=== PATIENT | male | born 1985 | race Caucasian/White ===

== ENCOUNTER 2017-02-09 15:10 | Emergency (ER) | payer OTHER, SELFPAY | END 2017-02-09 16:29 | disposition home or self-care (01) | PROVIDERS: Emergency Provider Nurse Practitioner; Family Provider Family Medicine; Visit Provider Nurse Practitioner | DX: J10.1 Influenza due to other identified influenza virus with other respiratory manifestations (principal) | CPT/HCPCS: 87804; 87880; 99201 ==

== ENCOUNTER 2017-08-05 17:35 | Emergency (ER) | payer OTHER, SELFPAY ==
[2017-08-05 17:38] VITALS: BP 146/83; PULSE 65; RESP 20; TEMP 36.4; O2SAT 99; BMI 27.1
--- NOTE | 2017-08-05 17:44 | XR_ITS ---
XR foot LT min 3V Ordering Physician: ER Patient Age: 32 years: Male HISTORY: ITS.REASON: HORSE KICKED FOOT 08/04/17 . Bile worse. Left foot pain. Fifth metatarsal region. TECHNIQUE: 3 view right foot Weightbearing COMPARISON : None FINDINGS Fracture fifth metatarsal. A longitudinal fracture is seen here. It extends from the base of the fifth metatarsal to the lateral midshaft. The mild cortical step-off is best appreciated on the oblique view. No Significant displacement otherwise on further review this fracture likely passes longitudinally to the base and possibly through the base of fifth metatarsal cuboid-metatarsal articulation., Only question is seen at this level serving of placement The other metatarsals 1,2,3, and 4 appear intact. The toes appear intact. The tarsals and mid foot intact. The lateral nonweightbearing view suggest mild pes planus IMPRESSION: Longitudinal spiral fracture fifth metatarsal. I believe this fracture extends from the base of fifth MT, and a longitudinal oblique fashion with mild cortical step-off of lateral cortex at mid portion fifth MT.... But overall basically nondisplaced
[2017-08-05 17:45] VITALS: BP 146/83; PULSE 65; RESP 20; TEMP 36.4; O2SAT 99; BMI 27.1
--- NOTE | 2017-08-05 17:50 | HMH.EDUTC ---
[facility] [place] Disposition Clinical Impression: Metatarsal bone fracture Qualifiers: Encounter type: initial encounter Metatarsal bone: fifth Fracture type: closed Fracture alignment: nondisplaced Laterality: left Qualified Code(s): S92.355A - Nondisplaced fracture of fifth metatarsal bone, left foot, initial encounter for closed fracture Disposition: Home, Self-Care Condition on Discharge: Good Instructions: Toe Fracture, Foot Fracture, How To Perform RICE (Rest, Ice, Compress, Elevate) Additional Instructions: *RICE, Rest the extremity, Ice 15-20 minutes 3-4 times daily, Compress- wear the chace wrap as discussed as much as possible to help reduce swelling and pain, Elevate the extremity when at rest *Chace wrap is for support and help control swelling, use it except in the shower. Be sure that is not to tight but not to loose either *Elevate when resting *Ibuprofen 600-800mg every 6-8 hours if you can take it or are not allergic as needed for pain an inflammation. If you cannot take Ibuprofen you can take Tylenol as directed on package. Immediately follow up for new or worsening of symptoms, or no noticeable improvement over the next 3-[address] Small office tomorrow for appointment Return if needed Stay off foot and no weight bearing until after seeing Dr Small Use crutches as advised in [facility] and keep foot wrapped and wear cast shoe Forms: Work/School Release Time of Disposition: 18:32 Medical Decision Making - Medical Records Medical records reviewed: Yes: I reviewed the patient's medical records. - Mk Inquiry Pt receiving controlled substance: No Mk was queried for this patient: No Vital Signs: 08/05/17 17:38 08/05/17 17:45 Temperature 97.6 F 97.6 F Temperature Source Oral Oral Pulse Rate [Left Radial] 65 65 Respiratory Rate 20 20 Blood Pressure [Right Arm] 146/83 146/83 Blood Pressure Mean [Right Arm] 104 104 Blood Pressure Source [Right Arm] Automatic Cuff Blood Pressure Position [Right Arm] Sitting Sitting 02 Sat by Pulse Oximetry 99 99 Oxygen Delivery Method Room Air Orders (Tests/Meds): ORDERS Category Date Time Status Foot XR left minimum 3 views [XR foot LT min 3V] Stat Exams 08/05/17 17:44 Ordered - Radiology Data #1 Image(s): Foot/Toes Image Reviewed: Yes I reviewed the patient's radiology image w/the ED provider questionable nondisplaced fracture shaft of 5th metatarsal - Reevaluation(s) Time: 18:33 Reevaluation #1: Patient refused cast boot, chace wrap placed and placed in cast shoe Patient state that he has crutches at home [facility] [place] HPI - General Stated complaint: AO [id number] @1900 L foot injury Time Seen by Provider: 08/05/17 17:50 Mode of Arrival: Ambulatory Source of Information: Patient Limitations: No Limitations Description of Symptoms (Recalled from Triage Doc. by RN): HORSE KICKED PT IN THE RT FOOT 08/04/17, BRUISING AND SWELLING IS NOTED. 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 State that ever since he has been having pain, swelling and bruising to the foot State that today he worked and has been walking on it but tonight it is more swollen so he came in to get it checked out - Related Data Home Medications Medication Instructions Recorded Confirmed Cetirizine HCl [Zyrtec] 10 mg PO DAILY 07/18/17 07/18/17 Fluticasone Propionate [Flonase 2 spr NS DAILY 07/18/17 07/18/17 50mcg nasal spray 16gm] Montelukast Sodium [Singulair 10mg 10 mg PO PM 07/18/17 07/18/17 tablet] Allergies Allergy/AdvReac Type Severity Reaction Status Date / Time ibuprofen Allergy Verified 08/05/17 17:49 - Worker's Comp Is this a Worker's Comp case?
--- NOTE | 2017-08-05 17:56 | ED_ITS ---
[facility] – [place] Disposition Clinical Impression: Metatarsal bone fracture Qualifiers: Encounter type: initial encounter Metatarsal bone: fifth Fracture type: closed Fracture alignment: nondisplaced Laterality: left Qualified Code(s): S92.355A - Nondisplaced fracture of fifth metatarsal bone, left foot, initial encounter for closed fracture Disposition: Home, Self-Care Condition on Discharge: Good Instructions: Toe Fracture, Foot Fracture, How To Perform RICE (Rest, Ice, Compress, Elevate) Additional Instructions: *RICE, Rest the extremity, Ice 15-20 minutes 3-4 times daily, Compress- wear the chace wrap as discussed as much as possible to help reduce swelling and pain, Elevate the extremity when at rest *Chace wrap is for support and help control swelling, use it except in the shower. Be sure that is not to tight but not to loose either *Elevate when resting *Ibuprofen 600-800mg every 6-8 hours if you can take it or are not allergic as needed for pain an inflammation. If you cannot take Ibuprofen you can take Tylenol as directed on package. Immediately follow up for new or worsening of symptoms, or no noticeable improvement over the next 3-[address] Small office tomorrow for appointment Return if needed Stay off foot and no weight bearing until after seeing Dr Small Use crutches as advised in [facility] and keep foot wrapped and wear cast shoe Forms: Work/School Release Time of Disposition: 18:32 Medical Decision Making - Medical Records Medical records reviewed: Yes: I reviewed the patient's medical records. - Mk Inquiry Pt receiving controlled substance: No Mk was queried for this patient: No Vital Signs: 08/05/17 17:38 08/05/17 17:45 Temperature 97.6 F 97.6 F Temperature Source Oral Oral Pulse Rate [Left Radial] 65 65 Respiratory Rate 20 20 Blood Pressure [Right Arm] 146/83 146/83 Blood Pressure Mean [Right Arm] 104 104 Blood Pressure Source [Right Arm] Automatic Cuff Blood Pressure Position [Right Arm] Sitting Sitting 02 Sat by Pulse Oximetry 99 99 Oxygen Delivery Method Room Air Orders (Tests/Meds): ORDERS Category Date Time Status Foot XR left minimum 3 views [XR foot LT min 3V] Stat Exams 08/05/17 17:44 Ordered - Radiology Data #1 Image(s): Foot/Toes Image Reviewed: Yes I reviewed the patient's radiology image w/the ED provider questionable nondisplaced fracture shaft of 5th metatarsal - Reevaluation(s) Time: 18:33 Reevaluation #1: Patient refused cast boot, chace wrap placed and placed in cast shoe Patient state that he has crutches at home [facility] [place] HPI - General Stated complaint: AO [id number] @1900 L foot injury Time Seen by Provider: 08/05/17 17:50 Mode of Arrival: Ambulatory Source of Information: Patient Limitations: No Limitations Description of Symptoms (Recalled from Triage Doc. by RN): HORSE KICKED PT IN THE RT FOOT 08/04/17, BRUISING AND SWELLING IS NOTED. 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
--- NOTE | 2017-08-05 18:11 | PC.NURSE ---
PT REFUSED CRUTCHES DUE TO THE FACT HE HAS CRUTCHES AT HOME.
[2017-08-05 18:28] VITALS: BP 146/83; PULSE 65; RESP 20; TEMP 36.6; O2SAT 99
== END 2017-08-05 18:35 | disposition home or self-care (01) ==
PROVIDERS: Emergency Provider Nurse Practitioner; Family Provider Family Medicine; PCP Family Medicine
DX: S92.355A Nondisplaced fracture of fifth metatarsal bone, left foot, initial encounter for closed fracture (principal); W55.12XA Struck by horse, initial encounter; Y93.52 Activity, horseback riding; Y92.73 Farm field as the place of occurrence of the external cause; K21.9 Gastro-esophageal reflux disease without esophagitis; E78.5 Hyperlipidemia, unspecified; I10 Essential (primary) hypertension
CPT/HCPCS: 73630; 99202

== ENCOUNTER 2020-05-17 18:19 | Emergency (ER) | payer OTHER, SELFPAY ==
[2020-05-17 18:30] VITALS: BP 135/81; PULSE 65; O2SAT 99
--- NOTE | 2020-05-17 18:32 | XR_ITS ---
PROCEDURE: XR KNEE LT 3V CLINICAL INDICATION: fall, recent meniscus surgery COMPARISON: No exams were available for comparison FINDINGS: No fracture or dislocation. No lytic or blastic change. There is normal mineralization. There is decrease in the joint space medially suggesting osteoarthritic change. Increased density is present in the retropatellar and suprapatellar region consistent with knee joint effusion. There is some lucency noted in the suprapatellar region. Lipohemarthrosis is a consideration. This could be seen with occult fracture. Other findings:None. IMPRESSION: No obvious fracture. Minimal osteoarthritic change with knee joint effusion Possible lipohemarthrosis which may be seen with an occult fracture. Follow-up suggested Dictated by: Sidney Powell MD 05/18/2020 05:34 Sidney Powell MD in [place] 05/18/2020 05:34
[2020-05-17 18:34] VITALS: BP 135/81; PULSE 68; RESP 16; TEMP 36.9; O2SAT 98; BMI 25.0
--- NOTE | 2020-05-17 18:42 | PC.NURSE ---
pt gone to rad.
--- NOTE | 2020-05-17 18:44 | HMH.EDGENADL ---
ED Disposition Clinical Impression: Left knee sprain Qualifiers: Encounter type: initial encounter Involved ligament of knee: other ligament Qualified Code(s): S83.8X2A - Sprain of other specified parts of left knee, initial encounter Disposition: Home, Self-Care Condition on Discharge: Fair Instructions: DI for Knee Sprain, DI for Knee Pain Additional Instructions: You have been evaluated for left knee injury. Diagnosed with a sprain. Please continue take anti-inflammatories like diclofenac. Take Keystone for extreme pain. Follow-up with your primary care doctor and sports medicine physician. You may need an MRI of your knee if pain does not improve. Return to the emergency department for any new or worsening pain, numbness or weakness, tingling in your foot. Prescriptions: Hydrocod/Acet 5/325 mg [Keystone 5/325mg tablet] 1 tab PO Q6HP PRN #12 tab PRN Reason: Severe Pain Transmission Status: Received by [id number] Referrals: Thomas Gunter [Primary Care Provider] - Time of Disposition: 19:10 - Critical Care Critical Care Time: No Attestation: On 05/17/20, the high probability of a clinically significant, sudden or life threatening deterioration of the following system(s) required my full and direct attention, intervention and personal management. The time I documented below is in addition to time spent performing reported procedures but includes the following listed in this critical care notation. Medical Decision Making - Medical Records Medical records reviewed: Yes: I reviewed the patient's medical records. - Mk Inquiry Pt receiving controlled substance: No Vital Signs: 05/17/20 18:30 05/17/20 18:34 Temperature 98.4 F Temperature Source Oral Pulse Rate 65 Pulse Rate [Radial] 68 Respiratory Rate 16 Blood Pressure 135/81 Blood Pressure [Right Arm] 135/81 Blood Pressure Mean 99 Blood Pressure Mean [Right Arm] 99 Blood Pressure Source [Right Arm] Automatic Cuff Blood Pressure Position [Right Arm] Supine 02 Sat by Pulse Oximetry 99 98 Oxygen Delivery Method Room Air Orders (Tests/Meds): ED MEDICATIONS Discontinued Medications Generic Name Dose Route Start Last Admin Trade Name Freq PRN Reason Stop Dose Admin Hydrocodone Bitart/Acetaminophen 1 tab 05/17/20 18:33 05/17/20 18:40 Hydrocodone/Apap 5/325 Mg Tablet PO 05/17/20 18:34 1 tab ONCE ONE Administration ORDERS Category Date Time Status XR knee LT 3V Stat Exams 05/17/20 18:32 Taken Medical Decision Narrative: In summary this is a 34-year-old male presenting to the emergency department with left knee pain after a fall. Patient clinically stable on arrival. Vital signs within normal limits. Physical exam is concerning for swelling on the medial aspect of the joint line and superior to the patella. Story does not count insistent with knee dislocation. Knee exam is stable. We will start with x-rays. X-rays show soft tissue swelling. No fractures. Patella in anatomic alignment. On reassessment patient's extensor mechanism is intact. Knee joint appears stable. Recommended he take anti-inflammatories. Use his soft knee brace. Follow-up with his sports medicine physician, may need an MRI if pain does not improve. Patient agreeable. Stable for discharge. General Adult HPI - General Chief complaint: Extremity Injury, Lower Stated complaint: a/o 05/17/1699 horse fell with him left knee pain Time Seen by Provider: 05/17/20 18:20 Mode of Arrival: Ambulatory Limitations: No Limitations Description of Symptoms (Recalled from ER Triage Doc. by RN): Left Knee Pain - History of Present Illness HPI narrative: 34-year-old male presenting to the emergency department with left knee pain. He was riding one of his horses prior to arrival, they were on an incline and the horse started to slip to the side. Patient hit the ground with his left knee. The horse did not fall on top of him. Hors
[2020-05-17 19:15] VITALS: BP 134/77; PULSE 72; O2SAT 98
[2020-05-17 19:31] VITALS: BP 134/77; PULSE 72; RESP 16; TEMP 36.9; O2SAT 98
== END 2020-05-17 19:33 | disposition home or self-care (01) ==
PROVIDERS: Emergency Provider Emergency Medicine; PCP Family Medicine
DX: S83.8X2A Sprain of other specified parts of left knee, initial encounter (principal); W18.39XA Other fall on same level, initial encounter; Y93.52 Activity, horseback riding; Y92.73 Farm field as the place of occurrence of the external cause
CPT/HCPCS: 73562; 99282

== ENCOUNTER 2023-01-14 09:31 | Emergency (ER) | payer BC, SELFPAY ==
[2023-01-14 10:02] VITALS: BP 139/86; PULSE 98; RESP 18; TEMP 36.7; O2SAT 100; BMI 28.0
--- NOTE | 2023-01-14 10:18 | EXP.UTC ---
Discharge Plan Disposition Patient Disposition: Home, Self-Care Condition: Good Prescriptions Prescriptions: New acyclovir 800 mg tablet 800 mg PO 5XDAY 7 Days Qty: 35 0RF Rx Instructions: while awake; give 5 doses in 24 hours No Action fluticasone propion-salmeterol 28 PUFFS blister with device 1 inh IH BID prednisone 10 MG tablet 10 mg PO BID 3 Days Qty: 6 0RF azithromycin 250 MG tablet 250 mg PO UD DOSE PK Qty: 6 0RF Rx Instructions: Take two (2) tablets today, then one (1) tablet days #2 thru #5 [id number] 118 ML syrup 5 ml PO Q6HP PRN (Reason: Cough) Qty: 240 0RF hydrocodone-acetaminophen 1 TAB tablet 1 tab PO Q6HP PRN (Reason: Severe Pain) Qty: 12 0RF montelukast 10 MG tablet 10 mg PO PM Referrals Follow up/Referrals: Provider,Referral, MD [Primary Care Provider] - See instructions Activity Restrictions/Add. Instructions Additional Instructions/Restrictions: Take medication as prescribed Follow up with your Family Doctor if no improvement Calamine lotion may help with itching Clinical Impressions Clinical Impression: Shingles Qualifiers: Herpes zoster complications: without complications Qualified Code(s): B02.9 - Zoster without complications Instructions Patient Instructions: DI for Shingles, Shingles Discharge ED Provider: Arianne Spring [facility] General Stated complaint: rash right side Time Seen by Provider: 01/14/23 10:18 History of Present Illness Provider Complaint: Patient states that he noticed a rash on his right upper chest area a few days ago and thought it was going away but now having new breakout that is going around the right side of his chest under his right arm that is sore to the touch, quiroz and hurts for anything to touch it thinks he may have shingles States that also last night he had some chills and mild flu like symptoms not sure if it may be from the shingles or if he may have flu wanting a flu test Related Data Home Medications Medication Instructions Recorded Confirmed montelukast 10 mg tablet 10 mg PO PM ALLERGIES 07/18/17 02/10/19 fluticasone 100 mcg-salmeterol 50 1 inh IH BID Asthma 12/31/19 12/31/19 mcg/dose blistr powdr for inhalation Previous Rx's Medication Instructions Recorded azithromycin 250 mg tablet 250 mg PO UD DOSE PK #6 tabs 02/10/19 [id number]-[id number] 5 ml PO Q6HP PRN Cough ##240 02/10/19 2 mg-30 mg-10 mg/5 mL oral syrup prednisone 10 mg tablet 10 mg PO BID 3 days #6 tabs 02/10/19 hydrocodone 5 mg-acetaminophen 325 1 tab PO Q6HP PRN Severe Pain #12 05/17/ mg tablet tabs acyclovir 800 mg tablet 800 mg PO 5XDAY 7 days #35 tabs 01/14/23 Allergies Allergy/AdvReac Type Severity Reaction Status Date / Time ibuprofen Allergy Verified 08/05/17 17:49 [facility] Disclaimer: The information contained in this section may have been updated after the patient was seen, as this information can be updated by other users. Social History Smoking Status: Unknown if ever smoked alcohol intake: never current occupational status: employed Travel in the last 8 weeks: None household members: spouse housing: house ROS Obtained: Yes All systems reviewed & no additional complaints except as documented and Yes Systems reviewed as appropriate & no additional complaints except as documented Constitutional Constitutional: Reports system reviewed and no additional complaints, except as documented, Reports as per HPI, Reports body ache and Reports chills ENT Ears, Nose, Mouth, and Throat: Reports system reviewed and no additional complaints, except as documented and Reports as per HPI Cardiovascular Cardiovascular: Reports system reviewed and no additional complaints, except as documented and Reports as per HPI Respiratory Respiratory: Reports system reviewed and no additional complaints, except as documented and Reports as per HPI Gastrointestin
[2023-01-14 10:27] LABS: UTC Influenza A Antigen Negative (Negative); UTC Influenza B Antigen Negative (Negative)
[2023-01-14 10:35] VITALS: BP 139/86; PULSE 90; RESP 18; TEMP 36.7; O2SAT 100
== END 2023-01-14 10:35 | disposition home or self-care (01) ==
PROVIDERS: Emergency Provider Nurse Practitioner
DX: B02.9 Zoster without complications (principal); M79.18 Myalgia, other site; R68.83 Chills (without fever)
CPT/HCPCS: 87804; 99204; 99212; G0463